=== PATIENT | male | born 1950 | race Caucasian/White ===

== ENCOUNTER 2018-02-08 18:07 | Inpatient (IN) | payer OTHER ==
[~2018-02-08] VITALS: Ht 165.1 cm; Wt 45.8 kg
[2018-02-08 18:16] VITALS: BP 117/69
[2018-02-08] MEDS ORDERED: PRINIVIL20 MG PO (18:24)
[2018-02-08] MEDS ORDERED: COREG25 MG PO (18:24)
[2018-02-08] MEDS ORDERED: PLAVIX 75 MG TA75 M1 PO (18:25)
[2018-02-08] MEDS ORDERED: LOVASTATIN 20 M20 MG PO (18:25)
[2018-02-08] MEDS ORDERED: XANAX 0.5 MG0.5 MG PO (18:25)
[2018-02-08] MEDS ORDERED: CELEXA20 MG PO (18:25)
[2018-02-08] MEDS ORDERED: HYDROCODONE-ACE15 ML PO (18:26)
[2018-02-08] MEDS ORDERED: ASPIR 8181 MG PO (18:26)
[2018-02-08 18:41] LABS: ABSOLUTE BASOPHILS 0.1 thou/uL (0.0-0.2); ABSOLUTE LYMPHOCYTES 1.8 thou/uL (0.8-5.3); ABSOLUTE MONOCYTES 0.9 thou/uL (0.0-1.2); ABSOLUTE NEUTROPHILS 8.7 thou/uL (1.6-8.1); BASOPHILS 0.9 %; EOSINOPHILS 0.1 %; HEMATOCRIT 27.2 % (42.0-52.0); HEMOGLOBIN 9.3 gm/dL (14.0-18.0); LYMPHOCYTES 15.4 %; MCH 33.5 pg (26.0-34.0); MCHC 34.1 g/dL (28.0-37.0); MONOCYTES 7.9 %; MPV 7.9 fl. (7.2-11.1); NUCLEATED RBCS 0 /100WBC; PLATELET COUNT* 359 thou/uL (150-400); POLYS 75.7 %; RBC 2.77 mil/uL (4.50-6.00); RDW-CV 15.3 % (10.5-14.5); WBC 11.5 thou/uL (4.0-11.0)
[2018-02-08 18:50] LABS: ANION GAP 7 mmol/L (7-16); BUN 69 mg/dL (7-18); CALCIUM 9.1 mg/dL (8.5-10.1); CHLORIDE 101 mmol/L (98-107); CO2 29 mmol/L (21-32); CREATININE 1.9 mg/dL (0.6-1.3); GLUCOSE 102 mg/dL (70-99); POTASSIUM 5.1 mmol/L (3.5-5.1); SODIUM 137 mmol/L (136-145)
[2018-02-08 18:52] LABS: APTT 24.5 Seconds (25.0-31.3); INR 1.1; PROTIME 10.9 Seconds (9.20-11.50)
[2018-02-08 18:56] LABS: ALKALINE PHOSPHATASE 77 U/L (46-116); LIPASE 76 U/L (73-393); SGOT 16 U/L (15-37); SGPT 10 U/L (30-65); TOTAL BILIRUBIN 0.4 mg/dL (<0.1-1.0); TOTAL PROTEIN 6.3 g/dL (6.4-8.2); TROPONIN-I LEVEL <0.06 ng/mL (<0.06)
[2018-02-08 21:13] LABS: URINE BILIRUBIN NEGATIVE (Negative); URINE BLOOD NEGATIVE (Negative); URINE CLARITY CLEAR; URINE COLOR YELLOW; URINE GLUCOSE-RANDOM NEGATIVE (Negative); URINE KETONES TRACE (Negative); URINE LEUKOCYTES-REFLEX NEGATIVE (Negative); URINE NITRITE-REFLEX NEGATIVE (Negative); URINE PROTEIN NEGATIVE (Negative); URINE SPECIFIC GRAVITY <= 1.005 (1.005-1.030); URINE UROBILINOGEN 0.2 E.U./dl (0.2-1.0)
[2018-02-08 21:52] LABS: HEMATOCRIT 23.7 % (42.0-52.0)
[2018-02-08 21:59] VITALS: BP 97/55
[2018-02-08 22:42] VITALS: BP 148/57
[2018-02-08 22:51] LABS: HEMATOCRIT 23.3 % (42.0-52.0); HEMOGLOBIN 7.8 gm/dL (14.0-18.0)
[2018-02-08 23:00] VITALS: BP 164/53
[2018-02-09] VITALS (7 sets, daily range): BP systolic 127–166; BP diastolic 53–69
[2018-02-09 02:37] LABS: HEMATOCRIT 21.5 % (42.0-52.0); HEMOGLOBIN 7.3 gm/dL (14.0-18.0)
[2018-02-09 06:44] LABS: HEMATOCRIT 21.3 % (42.0-52.0)
[2018-02-09 08:13] LABS: URINE POTASSIUM-RANDOM 30.8 mmol/L
--- NOTE | 2018-02-09 10:37 | EKG ---
[place] [address] ELECTROCARDIOGRAM REPORT Name: FANG MORAN Room: [address] IN [facility]#: [id number] Admission: 02/08/18 Attend Phys: Yanique Vance MD Discharge: Date of : 48 Report #: [id number] THIS REPORT FOR: //name// [facility] ED Test Date: 2018-02-08 Test Time: 18:38:36 Pat Name: FANG MORAN Department: Room: Gender: Installation And Service Technician: Niurka CASTELLANOS : 1950 Requested By: Order Number: [id number] John VELIZ: Charlie Tate Measurements Intervals [place] Rate: 84 P: 80 SD: 131 QRS: -6 QRSD: 157 T: 110 QT: 419 QTc: 496 Interpretive Statements Sinus rhythm Left bundle branch block No previous ECG available for comparison Electronically Signed On 02-09-2018 10:37:35 CDT by Charlie Tate [email or web address] <ELECTRONICALLY SIGNED> By: Charlie Tate MD, [facility] 02/09/18 1037 37 37 Charlie Tate MD, FACC /EPI
--- NOTE | 2018-02-09 10:37 | EKG ---
[place] [address] ELECTROCARDIOGRAM REPORT Name: FANG MORAN Room: [address] IN [facility]#: [id number] Admission: 02/08/18 Attend Phys: Yanique Vance MD Discharge: Date of : 48 Report #: [id number] THIS REPORT FOR: //name// [facility] ED Test Date: 2018-02-08 Test Time: 18:22:22 Pat Name: FANG MORAN Department: Room: Gender: Funeral Arranger: : 1950 Requested By: Natalie Campuzano Order Number: [id number] MD: Charlie Tate Measurements Intervals [place] Rate: 86 P: 93 SD: 121 QRS: 41 QRSD: 166 T: 104 QT: 433 QTc: 518 Interpretive Statements Sinus rhythm Left bundle branch block Baseline wander in lead(s) V5 No previous ECG available for comparison Electronically Signed On 02-09-2018 10:37:30 CDT by Charlie Tate [email or web address] <ELECTRONICALLY SIGNED> By: Charlie Tate MD, [facility] 02/09/18 1037 21 21 Charlie Tate MD, [facility] /EPI
[2018-02-09 17:04] LABS: HEMATOCRIT 23.9 % (42.0-52.0); HEMOGLOBIN 8.1 gm/dL (14.0-18.0)
[2018-02-10 04:09] VITALS: BP 85/44
[2018-02-10 05:01] LABS: HEMATOCRIT 25.4 % (42.0-52.0); HEMOGLOBIN 8.4 gm/dL (14.0-18.0); MCH 31.8 pg (26.0-34.0); MCV 96.3 fL (80.0-100.0); RBC 2.64 mil/uL (4.50-6.00); RDW-CV 15.6 % (10.5-14.5); WBC 11.7 thou/uL (4.0-11.0)
[2018-02-10 06:01] LABS: CALCIUM 8.4 mg/dL (8.5-10.1); CREATININE 1.4 mg/dL (0.6-1.3); MAGNESIUM 1.6 mg/dL (1.8-2.4); POTASSIUM 4.1 mmol/L (3.5-5.1)
[2018-02-10 09:00] VITALS: BP 142/71
[2018-02-10] MEDS ORDERED: CARAFATE 1 GM TA1 G1 PO (10:09)
[2018-02-10] MEDS ORDERED: PANTOPRAZOLE SO40 M1 PO (10:09)
[2018-02-10 10:53] VITALS: BP 142/71
[2018-02-10 10:56] VITALS: BP 142/71
--- NOTE | 2018-02-10 16:00 | CON ---
[address] [address] CONSULTATION Name: FANG MORAN Damir Room: [address] IN .R.#: [id number] Admission: 02/08/18 Attend Phys: Yanique Vance MD Discharge: 02/10/18 Date of : 48 Report #: [id number] THIS REPORT FOR: //name// CC: Yanique Waters DATE OF SERVICE: 02/09/2018 ADDENDUM I have personally seen and examined the patient and reviewed labs and imaging. The patient with previous history of peptic ulcer disease who is on Plavix and aspirin. He presents with hematemesis and melena, which started on Thursday. He was admitted to the hospital with the same and anemia requiring blood transfusion of one unit. Since admission, the patient has been on Protonix drip. He also claims that he has never had a colonoscopy. He has a family history of colon cancer in his maternal grandfather. At some point, he will need a colonoscopy as well that we will schedule as outpatient. We will make further recommendation once his upper endoscopy is complete. <ELECTRONICALLY SIGNED> By: Arden Carlisle MD 02/10/18 1600 1549 [id number] Carlisle MD /nt
--- NOTE | 2018-02-10 16:00 | CON ---
[address] [address] CONSULTATION Name: LUISAFANG W Room: [address] IN ..#: [id number] Admission: 02/08/18 Attend Phys: Yanique Vance MD Discharge: 02/10/18 Date of : 48 Report #: [id number] THIS REPORT FOR: //name// CC: Yanique Waters MD DICTATED BY: Louise Ray [facility] DATE OF SERVICE: 02/08/2018 Please note at the time of this dictation, the patient was seen and physically examined by myself. REASON FOR CONSULTATION: Upper GI bleed. HISTORY OF PRESENT ILLNESS: This is a 67-year-old male who presented to the Emergency Room yesterday morning around 2:30 a.m. He awoke and had vomiting of bright red blood and coffee-ground emesis. He also had a little bit of epigastric pain associated with this as well. The patient is currently on aspirin and Plavix due to history of stents and LA in the past. He denies any NSAID use at this time. He states that he was doing fine the day before until he awoke with this sensation. He also had a stool that was very melanotic as well. He was also noticing that at the time prior to admission that he was having increased shortness of breath with all of this. He states he had an upper scope done at [facility] 10+ years ago he thinks for stretching his esophagus, but has never had a colonoscopy done. He denies any fever or chills. His appetite and weight have been steady. He does have a history of some constipation, which he states he may go several days without a bowel movement and that his bowel habits have changed over the last 6 months. He maternal grandfather did have colon cancer. ALLERGIES: No known drug allergies. MEDICATIONS: From home include hydrocodone, aspirin, Celexa, Plavix, Mevacor, Xanax, Prinivil, and Coreg. PAST MEDICAL HISTORY: Hypertension, congestive heart failure. He has had a stent placed. PAST SURGICAL HISTORY: Triple bypass surgery. FAMILY HISTORY: Maternal grandfather had colon cancer. SOCIAL HISTORY: Smokes 2 packs per day. Alcohol past use years ago and only special occasions now and [place] [address] CONSULTATION Name: FANG MORAN Room: [address]#: [id number] Admission: 02/08/18 Attend Phys: Yanique Vance MD Discharge: 02/10/18 Date of : 48 Report #: [id number] REVIEW OF SYSTEMS: Twelve-point review of systems is essentially negative except what is mentioned in the HPI. PHYSICAL EXAMINATION: VITAL SIGNS: Temperature 37.2, pulse 75, respirations 16, blood pressure 132/58. HEART: Regular rate and rhythm. LUNGS: Diminished, but clear. ABDOMEN: Soft, positive bowel sounds in all 4 quadrants with some epigastric tenderness noted to palpation. LABORATORY DATA: Hemoglobin on admission was 9.3, went down to 7. He has received a unit of blood. Hematocrit is 21.3, white count is 11.5, platelets 359. PT is 10.9, INR is 1.1. Sodium 137, potassium 5.1, chloride 101, CO2 29, BUN is 69, creatinine is 1.9, GFR is 35 and glucose is 102. CT of the abdomen and pelvis showed sigmoid diverticulosis, some fluid noted in the stomach. Otherwise negative. IMPRESSION: 1. Gastrointestinal bleed. 2. Hematemesis. 3. Epigastric pain. 4. Acute anemia. 5. Anticoagulant therapy, Plavix and aspirin. 6. Constipation, change in bowel habits in the last 6 months. 7. Family history of colon cancer in maternal grandfather. PLAN: 1. EGD today with Dr. Carlisle. 2. Continue Protonix. 3. Hold anticoagulants. 4. The patient will need a colonoscopy for surveillance secondary to family history. 5. Labs, CBC and CMP in the a.m. 6. Further recommendations to be made once the procedure has been performed. Thank you for allowing us to participate in this patient's care. Please do not hesitate to call with any questions in regard to this consult. ADDENDUM I have personally seen and examined the patient and reviewed labs and imaging. The patient with previous history of peptic ulcer disease who is on Plavix and aspirin. He presents with hematemesis and melena, which started on Thursday. He was admitted to the hospital with the same [place] [address] CONSULTATION Name: PERRI MORANIRVIN Reich Room: [address] IN M.R.#: [id number] Admission: 02/08/18 Attend Phys: Yanique Vance MD Discharge: 02/10/18 Date of : 48 Report #: [id number] transfusion of one unit. Since admission, the patient has been on Protonix drip. He also claims that he has never had a colonoscopy. He has a family history of colon cancer in his maternal grandfather. At some point, he will need a colonoscopy as well that we will schedule as outpatient. We will make further recommendation once his upper endoscopy is complete. <ELECTRONICALLY SIGNED> By: Arden Carlisle MD 02/10/18 1600 1428 [id number] Carlisle MD /nt
== END 2018-02-10 11:30 | disposition home or self-care (01) | DRG 377 ==
LOC: M.ERS 18:07 → M.TBA-ER 20:49 → M.2W 20:49
PROVIDERS: Emergency Medicine; Family Medicine; Internal Medicine; Physician Assistant; ADMIT Internal Medicine
PROC: 0DB68ZX Excision of Stomach, Via Natural or Artificial Opening Endoscopic, Diagnostic (ICD-10-PCS; principal; 2018-02-09)
PROC: 0DB98ZX Excision of Duodenum, Via Natural or Artificial Opening Endoscopic, Diagnostic (ICD-10-PCS; principal; 2018-02-09)
PROC: 30233N1 Transfusion of Nonautologous Red Blood Cells into Peripheral Vein, Percutaneous Approach (ICD-10-PCS; principal; 2018-02-09)
DX: K27.4 Chronic or unspecified peptic ulcer, site unspecified, with hemorrhage (principal); N17.0 Acute kidney failure with tubular necrosis; D62 Acute posthemorrhagic anemia; I50.22 Chronic systolic (congestive) heart failure; E44.1 Mild protein-calorie malnutrition; Z68.1 Body mass index [BMI] 19.9 or less, adult; K44.9 Diaphragmatic hernia without obstruction or gangrene; F32.9 Major depressive disorder, single episode, unspecified; K59.00 Constipation, unspecified; K92.0 Hematemesis; F17.210 Nicotine dependence, cigarettes, uncomplicated; I73.9 Peripheral vascular disease, unspecified; I25.10 Atherosclerotic heart disease of native coronary artery without angina pectoris; J44.9 Chronic obstructive pulmonary disease, unspecified; I10 Essential (primary) hypertension; I25.2 Old myocardial infarction; Z79.01 Long term (current) use of anticoagulants; Z79.82 Long term (current) use of aspirin; Z79.899 Other long term (current) drug therapy; Z80.0 Family history of malignant neoplasm of digestive organs; Z95.1 Presence of aortocoronary bypass graft; Z95.5 Presence of coronary angioplasty implant and graft